=== PATIENT | male | born 1980 ===

== ENCOUNTER 2021-12-31 18:52 | Emergency (ER) | payer SELFPAY ==
[2021-12-31] MEDS ORDERED: fentaNYL 100 MCG/2 ML INJ IV ONE ×2 (19:31→20:11)
--- NOTE | 2021-12-31 19:36 | Emergency Department Report ---
Upper Extremity - HPI Chief Complaint: Extremity Injury, Upper Stated Complaint: SHOULDER OUT OF PLACE Time Seen by Provider: 12/31/21 19:31 Upper Extremity: Left Shoulder (report left shoulder pain following a fall while playing goaly ) Occurred When: Today Mechanism: Fall, Other (while playing goaly) Severity: severe Symptoms: Yes Pain with Movement, Yes Deformity, Yes Limited Range of Movement, Yes Weakness, No Numbness, No Swelling, No Bruising/Ecchymosis, No Laceration or Abrasion ED Review of Systems ROS: Stated complaint: SHOULDER OUT OF PLACE Other details as noted in HPI Comment: All other systems reviewed and negative Musculoskeletal: arthralgia, myalgia, other (left shoulder pain with fall ) ED Past Medical Hx - Medications Home Medications: Home Medications Medication Instructions Recorded Confirmed Last Taken Type Cyclobenzaprine [Flexeril] 10 mg PO TID PRN 5 Days #15 tab NS 12/31/21 Unknown Rx oxyCODONE /ACETAMINOPHEN [Percocet 1 tab PO Q6HR PRN 5 Days #20 12/31/21 Unknown Rx 5/325] tablet NS Upper Extremity Exam - Exam General: Vital signs noted. No distress. Alert and acting appropriately. Head and Torso: No HEENT Abnormality, No Neck Tenderness, No Chest/Lungs Abnormality, No Abdominal Tenderness, No Back Tenderness Shoulder Exam: Yes Shoulder Tenderness, Yes Shoulder Deformity, No Clavicle Tenderness, No Normal Range of Motion in Shoulder (left shoulder), No AC Joint Tenderness Arm Exam: No Arm/Humerus Tenderness, No Arm Deformity Elbow: No Elbow Tenderness, No Normal Range of Motion in Elbow, No Elbow Deformity Forearm: No Forearm Tenderness, No Forearm Deformity, No Pain with Pronation, No Pain with Supination Wrist: Yes Normal ROM in Wrist, No Wrist Tenderness, No Wrist Deformity, No Snuffbox Tenderness, No Pain with Axial Thumb Compression ED Course Vital Signs 12/31/21 19:12 Temperature 98.4 F Pulse Rate 80 Respiratory 20 Rate Blood Pressure 133/87 O2 Sat by Pulse 100 Oximetry - Reevaluation(s) Reevaluation #1: 12/31/21 19:38 left shoulder pain s/p fall-- Pt has history previous dislocation in same shoulder--noted with deformed and tendered left shoulder-- will get xray to confirm-- given fentanyl 50 mcg + Versed 2 mg IV x 1- 12/31/21 19:40 Reevaluation #2: 12/31/21 19:41 I took a look at the xray and noticed anterior dislocation without any obvious fracture-- will go ahead and reduce the joint to relieve pain. Reevaluation #3: 12/31/21 20:18 Joint reduced on one attempt after sedation with Fentanyl and Versed-- see procedure note for details. - Orthopedic Joint Reduction Joint #1 Consent Obtained: written consent Time Out Performed: Yes Side: left Joint Reduction Location: shoulder Analgesia: moderate sedation Shoulder Technique Used (if applicable): traction/counter-traction (with massage ) Technique Used: traction/counter-traction Post-Reduction Neuro Exam: intact Post-Reduction Vascular Exam: intact Post Reduction X-Ray Obtained: Yes Post Reduction X-Ray Results: reduced Splint Applied: Yes Patient Tolerated Procedure: well, other (pt given 50 mcg x 1 repeated and Versed 2 mg IV x 1 repeated ) Critical care attestation.: If time is entered above; I have spent that time in minutes in the direct care of this critically ill patient, excluding procedure time. ED Disposition Clinical Impression: Dislocation of left shoulder joint Qualifiers: Encounter type: initial encounter Qualified Code(s): S43.005A - Unspecified dislocation of left shoulder joint, initial encounter Disposition: 01 HOME / SELF CARE / HOMELESS Is pt being admited?: No Does the pt Need Aspirin: No Condition: Stable Instructions: Shoulder Dislocation, [id number] Additional Instructions: keep your shoulder immobilization in place until follow up with your doctor Take your pain medication as prescribed Call or return to ED if your symptoms worsen Prescriptions: Cyclobenzaprine [Flexeril] 10 mg PO TID PRN 5 Days #15 tab NS PRN Reason: Muscle Spasm oxyCODONE /ACETAMINOPHEN [Percocet 5/325] 1 tab PO Q6HR PRN 5 Days #20 tablet NS PRN Reason: Pain Referrals: OLGA IZAGUIRRE MD [Referring] - 3-5 Days Time of Disposition: 20:38
--- NOTE | 2021-12-31 19:40 | XRay Report ---
Left shoulder 2 views INDICATION: Injury FINDINGS: There is anterior inferior dislocation of the left glenohumeral joint. AC joint appears nor mal. Degenerative changes seen within the proximal humerus with osteophyte at the humeral head neck j unction. There may be a Hill-Sachs impaction fracture the superior lateral humeral head. Signer Name: Alexy Rosales MD Signed: 12/31/2021 7:35 PM Workstation Name: [id number]
[2021-12-31] MEDS ORDERED: MIDAZOLAM 5 MG/5 ML INJ MDV IV NR ×2 (20:00→21:00)
--- NOTE | 2021-12-31 20:35 | XRay Report ---
Left shoulder 2 views INDICATION: Postreduction FINDINGS: Since prior examination the humeral head has been reduced and is within the glenohumeral britney int. There may be a small Hill-Sachs deformity. MRI could be performed for further evaluation of the labrum. Signer Name: Alexy Rosales MD Signed: 12/31/2021 8:30 PM Workstation Name: [id number]
[2021-12-31 20:46] VITALS: BP 120/73
== END 2021-12-31 21:04 | disposition home or self-care (01) ==
LOC: ED 18:52
DX: S43.085A Other dislocation of left shoulder joint, initial encounter (principal); W18.39XA Other fall on same level, initial encounter; Y93.89 Activity, other specified; Y92.89 Other specified places as the place of occurrence of the external cause; Y99.8 Other external cause status
CPT/HCPCS: 23650; 73030; 99284; J2250; J3010